=== PATIENT | female | born 1965 | race Caucasian/White ===

== ENCOUNTER 2020-09-13 06:33 | Outpatient (REF) | payer OTHER, SELFPAY ==
[2020-09-13 11:59] LABS: Estimated Average Glucose 143 mg/dL; Hemoglobin A1c % 6.6 %
[2020-09-13 12:06] LABS: Creatinine Urine 119.68 mg/dL
[2020-09-14 19:23] LABS: LDL Cholesterol Direct 153 mg/dL (<100)
== END 2020-09-13 06:34 | disposition home or self-care (01) ==
LOC: HO.HMGCLDS 06:33
PROVIDERS: PCP Internal Medicine; Visit Provider Internal Medicine
DX: R73.9 Hyperglycemia, unspecified (principal)
CPT/HCPCS: 82043; 83036; 83721

== ENCOUNTER 2021-11-03 09:08 | Outpatient (REF) | payer BC, SELFPAY ==
--- NOTE | ~2021-11-03 | XR_ITS ---
EXAMINATION: XR SHOULDER, LEFT CLINICAL INFORMATION: Left shoulder pain COMPARISON: None TECHNIQUE: 4 views of the left shoulder were obtained. FINDINGS: Visualized portion of the proximal left humerus demonstrate no fracture. Left humeral head demonstrates good articulation with the glenoid fossa. Subtle soft tissue calcifications project adjacent to the greater tuberosity. The acromioclavicular joint is normal in appearance. Visualized left-sided ribs and lung parenchyma are unremarkable. XR/XR shoulder LT min 2V IMPRESSION: Suspected mild calcific tendinitis.
[2021-11-03 11:34] LABS: Estimated Average Glucose 154 mg/dL
[2021-11-03 11:40] LABS: Alanine Aminotransferase 35 U/L (0-31); Albumin Level 4.4 g/dL (3.5-5.0); Alkaline Phosphatase 90 U/L (39-117); Anion Gap 14 (12-20); Aspartate Amino Transferase 22 U/L (5-31); Bilirubin Total 0.4 mg/dL (0.0-1.0); Blood Urea Nitrogen 20 mg/dL (9-16); Calcium 9.8 mg/dL (8.4-10.2); Carbon Dioxide 28 mmol/L (22-29); Chloride 102 mmol/L (96-108); Estimated Glomerular Filt Rate > 60; Glucose Random 144 mg/dL (60-115); Potassium 3.8 mmol/L (3.3-5.1); Sodium 140 mmol/L (135-145); Total Protein 7.5 g/dL (6.5-8.0)
[2021-11-04 05:46] LABS: LDL Cholesterol Direct 153 mg/dL (<100)
== END 2021-11-03 09:09 | disposition home or self-care (01) ==
LOC: HO.HMGCX 09:08
PROVIDERS: PCP Internal Medicine; Visit Provider Internal Medicine
DX: R73.03 Prediabetes (principal); I10 Essential (primary) hypertension; E66.09 Other obesity due to excess calories; M25.512 Pain in left shoulder; Z91.19 Patient's noncompliance with other medical treatment and regimen
CPT/HCPCS: 36415; 73030; 80053; 83036; 83721

== ENCOUNTER → 2021-12-06 09:51 | Outpatient (BNVA) | payer BC, SELFPAY | PROVIDERS: PCP Internal Medicine; Visit Provider Physician Assistant | DX: M75.32 Calcific tendinitis of left shoulder (principal) | CPT/HCPCS: 20610; J1020 ==

== ENCOUNTER 2022-01-04 15:00 | Outpatient (RCR) | payer BC, SELFPAY ==
--- NOTE | 2022-03-04 09:34 | MHC.PT.DC ---
[facility] [place] [facility] [place] [facility] [place] [facility] [address] [phone] F: [phone] F: [phone] F: [phone] F: [phone] Physical Therapy Discharge Report Diagnosis: L shoulder calcific tendonitis. Date of Surgery: Date of Evaluation: 11/21/21 Date of Discharge: 03/04/22 Treatments to Date: 7 Cancellations to Date: No Shows to Date: 1 Discharge Status: Independent with HEP Patient Elected to Stop Discharge Summary: Pt did not attend her last therapy apt and self DC'd though has become I with a home program and had reported some improvement. Electronically signed by: Pedro Amaral PT. Please sign and return to therapist. Thank you for your referral.
== END 2022-03-04 09:35 | disposition home or self-care (01) ==
LOC: HO.PTCHIC 15:00
PROVIDERS: PCP Internal Medicine; Visit Provider Internal Medicine
DX: M25.512 Pain in left shoulder (principal)
CPT/HCPCS: 97014; 97033; 97035; 97110; 97140; 97161

== ENCOUNTER 2022-02-05 18:08 | Outpatient (REF) | payer BC, SELFPAY | END 2022-02-05 18:09 | disposition home or self-care (01) | LOC: HO.MRI 18:08 | PROVIDERS: Visit Provider Physician Assistant | DX: Z13.89 Encounter for screening for other disorder (principal) ==

== ENCOUNTER 2022-06-06 11:34 | Outpatient (REF) | payer BC, SELFPAY ==
[2022-06-06 13:00] LABS: Influenza A PCR NEGATIVE (Negative); Influenza B PCR NEGATIVE (Negative); Resp Syncy Virus RNA Qual PCR NEGATIVE (Negative); SARS COV2 PCR INHOUSE POSITIVE (Negative)
== END 2022-06-06 11:35 | disposition home or self-care (01) ==
LOC: HO.LNP 11:34
PROVIDERS: Visit Provider Internal Medicine
DX: R09.89 Other specified symptoms and signs involving the circulatory and respiratory systems (principal); Z20.822 Contact with and (suspected) exposure to COVID-19
CPT/HCPCS: 0241U

== ENCOUNTER 2022-07-29 08:18 | Outpatient (REF) | payer BC, SELFPAY ==
[2022-07-29 11:22] LABS: MANUAL DIFF FLAG NO
[2022-07-29 11:50] LABS: Basophils Absolute Auto 0.1 X10*3/uL (0.0-0.2); Basophils Percent Auto 0.8 % (0-2); Eosinophils Absolute Auto 0.1 X10*3/uL (0.0-0.4); Eosinophils Percent Auto 1.7 % (0-4); Hematocrit 43.5 % (37.0-47.0); Hemoglobin 14.9 g/dl (12.0-16.0); Imm Gran Abs Auto 0.03 X10*3/uL (0.00-0.03); Imm Gran Pct Auto 0.4 % (0.0-0.4); Lymphocytes Percent Auto 38.6 % (20-40); Mean Corpuscular HGB Conc 34.3 g/dl (31.0-35.0); Mean Corpuscular Hemoglobin 31.3 pg (27.0-33.0); Mean Corpuscular Volume 91.4 fL (80.0-98.0); Mean Platelet Volume 10.1 fL (9.4-12.3); Monocytes Absolute Auto 0.5 X10*3/uL (0.1-1.2); Monocytes Percent Auto 6.3 % (2-11); Neutrophils Absolute Auto 4.1 x10*3/uL (2.0-8.3); Neutrophils Percent Auto 52.2 % (45-73); Platelet Count 273 X10*3/uL (160-400); Red Blood Count 4.76 X10*6/uL (4.20-5.50); Red Cell Distribution Width 12.7 % (11.0-16.0); White Blood Count 7.8 X10*3/uL (4.8-10.8)
[2022-07-29 11:59] LABS: Creatinine Urine 47.66 mg/dL; Microalbum/Creatinine Ratio Ur 12.5 ug/mg cr
[2022-07-29 12:21] LABS: Insulin 8 uU/mL (2-29); TSH reflex Free T4 1.14 uIU/mL (0.32-4.0)
[2022-07-29 12:37] LABS: Alanine Aminotransferase 18 U/L (0-31); Albumin Level 4.5 g/dL (3.5-5.0); Alkaline Phosphatase 74 U/L (39-117); Anion Gap 15 (12-20); Aspartate Amino Transferase 17 U/L (5-31); Bilirubin Total 0.7 mg/dL (0.0-1.0); Blood Urea Nitrogen 15 mg/dL (9-16); Calcium 9.3 mg/dL (8.4-10.2); Carbon Dioxide 26 mmol/L (22-29); Chloride 103 mmol/L (96-108); Cholesterol 238 mg/dL; Estimated Glomerular Filt Rate > 60; Glucose Fasting 103 mg/dL (60-99); HDL Cholesterol 64 mg/dL; LDL Cholesterol Calculated 156 mg/dl; Potassium 4.1 mmol/L (3.3-5.1); Sodium 140 mmol/L (135-145); Total Protein 7.1 g/dL (6.5-8.0); Triglycerides 93 mg/dL
[2022-08-04 17:16] LABS: Vitamin D 25-OH, D2 <4 ng/mL; Vitamin D 25-OH, D3 41 ng/mL; Vitamin D 25-OH, Total 41 ng/mL (30-100)
== END 2022-07-29 08:19 | disposition home or self-care (01) ==
LOC: HO.HMGCLDS 08:18
PROVIDERS: PCP Internal Medicine; Visit Provider Internal Medicine
DX: E66.3 Overweight (principal); J45.909 Unspecified asthma, uncomplicated; I10 Essential (primary) hypertension; R53.83 Other fatigue; E13.9 Other specified diabetes mellitus without complications
CPT/HCPCS: 36415; 80053; 80061; 82043; 82306; 83525; 84443; 85025

== ENCOUNTER 2024-04-16 08:32 | Outpatient (REF) | payer BC, SELFPAY ==
[2024-04-16 09:26] LABS: MANUAL DIFF FLAG NO
[2024-04-16 09:41] LABS: Basophils Absolute Auto 0.1 X10*3/uL (0.0-0.2); Basophils Percent Auto 0.7 % (0-2); Eosinophils Absolute Auto 0.1 X10*3/uL (0.0-0.4); Eosinophils Percent Auto 1.5 % (0-4); Hematocrit 42.8 % (37.0-47.0); Hemoglobin 15.4 g/dl (12.0-16.0); Imm Gran Abs Auto 0.01 X10*3/uL (0.00-0.03); Imm Gran Pct Auto 0.1 % (0.0-0.4); Lymphocytes Absolute Auto 2.6 X10*3/uL (1.2-4.9); Lymphocytes Percent Auto 35.4 % (20-40); Mean Corpuscular Hemoglobin 31.4 pg (27.0-33.0); Mean Corpuscular Volume 87.3 fL (80.0-98.0); Mean Platelet Volume 9.3 fL (9.4-12.3); Monocytes Absolute Auto 0.4 X10*3/uL (0.1-1.2); Monocytes Percent Auto 5.5 % (2-11); Neutrophils Absolute Auto 4.1 x10*3/uL (2.0-8.3); Neutrophils Percent Auto 56.8 % (45-73); Platelet Count 260 X10*3/uL (160-400); Red Cell Distribution Width 12.3 % (11.0-16.0); White Blood Count 7.3 X10*3/uL (4.8-10.8)
[2024-04-16 10:42] LABS: Alanine Aminotransferase 20 U/L (0-31); Albumin Level 4.6 g/dL (3.5-5.0); Alkaline Phosphatase 73 U/L (39-117); Anion Gap 13 (12-20); Aspartate Amino Transferase 17 U/L (5-31); Bilirubin Total 0.6 mg/dL (0.0-1.0); Blood Urea Nitrogen 18 mg/dL (9-16); Calcium 9.8 mg/dL (8.4-10.2); Carbon Dioxide 26 mmol/L (22-29); Chloride 105 mmol/L (96-108); Cholesterol 250 mg/dL (<200); Estimated Glomerular Filt Rate > 60; Gamma Glutamyl Transpeptidase 24 U/L (7-33); Glucose Random 107 mg/dL (60-115); HDL Cholesterol 70 mg/dL (>40); LDL Cholesterol Calculated 156 mg/dL (<100); Sodium 140 mmol/L (135-145); Total Protein 7.4 g/dL (6.5-8.0); Triglycerides 120 mg/dL (<150)
[2024-04-16 10:46] LABS: Parathyroid Hormone Intact 61.1 pg/mL (8.7-77.1)
[2024-04-16 11:04] LABS: Free T4 (Free Thyroxine) 0.93 ng/dL (0.71-1.85); Insulin 14 uU/mL (2-29); Vitamin D 25-OH Total 43.2 ng/mL (>30)
[2024-04-17 09:43] LABS: Thyroglobulin Antibodies <1 IU/mL (< or = 1); Thyroid Peroxidase Antibodies <1 IU/mL (<9)
[2024-04-17 09:58] LABS: DHEA Sulfate 80 mcg/dL (5-167); Follicle Stimulating Hormone 56.4 mIU/mL; Lutenizing Hormone 25.2 mIU/mL; Triiodothyronine T3 Free 3.3 pg/mL (2.3-4.2)
[2024-04-19 07:29] LABS: CRP High Sensitivity 1.7 mg/L
[2024-04-19 17:43] LABS: Homocysteine 8.5 umol/L (<10.4)
[2024-04-20 11:13] LABS: Triiodothyronine T3 Reverse 11 ng/dL (8-25)
[2024-04-20 13:32] LABS: Testosterone, Free 3.4 pg/mL (0.1-6.4); Testosterone, Total 18 ng/dL (2-45)
[2024-04-20 16:28] LABS: Progesterone <0.1 ng/mL
[2024-04-22 07:29] LABS: Dihydrotestosterone <5 ng/dL (< OR = 20)
[2024-04-24 04:33] LABS: Estradiol Free 0.09 pg/mL; Estradiol, Ultrasensitive 4 pg/mL
== END 2024-04-16 08:33 | disposition home or self-care (01) ==
LOC: HO.HMGCLDS 08:32
PROVIDERS: PCP Internal Medicine; Visit Provider Internal Medicine
DX: E03.9 Hypothyroidism, unspecified (principal); E11.9 Type 2 diabetes mellitus without complications; E55.9 Vitamin D deficiency, unspecified; E78.5 Hyperlipidemia, unspecified; D64.9 Anemia, unspecified; R53.83 Other fatigue; K76.0 Fatty (change of) liver, not elsewhere classified; N95.9 Unspecified menopausal and perimenopausal disorder
CPT/HCPCS: 36415; 80053; 80061; 82306; 82627; 82642; 82670; 82681; 82977; 83001; 83002; 83090; 83525; 83970; 84144; 84402; 84403; 84439; 84443; 84481; 84482; 85025; 86141; 86376; 86800